=== PATIENT | female | born 1970 | race Caucasian/White ===

== ENCOUNTER 2017-07-01 21:02 | Emergency (ER) | payer OTHER ==
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
[2017-07-02] MEDS ORDERED: VERSED IV ONE ×2 (01:42→01:44)
[2017-07-02] MEDS ORDERED: NORCO 5/325 PO ONE (02:34)
[2017-07-02] MEDS ORDERED: ZOFRAN ODT PO ONE (02:34)
[2017-07-02] MEDS ORDERED: MOTRIN PO ONE (02:35)
[2017-07-02] MEDS ORDERED: BOOSTRIX IM ONE (02:35)
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
[2017-07-02] MEDS ORDERED: TRIPLE ANTIBIOTIC TP ONE ×2 (03:46→03:48)
[2017-07-02 04:11] VITALS: BP 122/78
== END 2017-07-02 04:10 | disposition home or self-care (01) ==
LOC: ED 21:02
DX: S01.81XA Laceration without foreign body of other part of head, initial encounter (principal); Y08.89XA Assault by other specified means, initial encounter; Y93.89 Activity, other specified; Y99.8 Other external cause status; Y92.410 Unspecified street and highway as the place of occurrence of the external cause
CPT/HCPCS: 70150; 70450; 90471; 90715; A6250; J2250; Q0162